=== PATIENT | female | born 1975 | race Caucasian/White ===

== ENCOUNTER → 2025-02-22 | Outpatient (CLI) | payer BC, SELFPAY ==
--- NOTE | 2025-02-22 16:29 | EKG_ITS ---
[facility] (Formerly [facility]) Test Date: 2025-02-22 Pat Name: RAFAEL ABDI Department: Room: - Gender: Female Public [employer] Internship: ALEX : 1975 Requested By: Kolby Garber Order Number: [id number] Reading MD: Kolby Garber Measurements Intervals [place] Rate: 59 P: 9 [place]: 152 QRS: 57 QRSD: 85 T: 51 QT: 389 QTc: 386 Interpretive Statements SINUS BRADYCARDIA Compared to ECG 07/23/2024 23:24:11 Sinus rhythm no longer present /store/S0/[id number]/ecg/[id number].pdf
[2025-02-22 16:46] LABS: Basophils % (Auto) 1 % (0-2.5); Eosinophils # (Auto) 0.1 Thou/mm3 (0.0-0.5); Eosinophils % (Auto) 1 % (0-10); Immature Granulocytes % (Auto) 1 % (0-0); Immature Granulocytes Auto 0.03 Thou/mm3 (0.00-0.00); Lymphocytes % (Auto) 22 % (10-50); Mean Corpuscular HGB Conc 35.1 g/dl (31.0-37.0); Mean Corpuscular Hemoglobin 32.6 pg (25.0-35.0); Mean Corpuscular Volume 93 fL (80-100); Monocytes # (Auto) 0.6 Thou/mm3 (0.0-0.8); Monocytes % (Auto) 13 % (0-12); Neutrophils # (Auto) 2.9 Thou/mm3 (1.8-7.7); Neutrophils % (Auto) 63 % (37-80); Nucleated Red Blood Cell % 0 /100 WBC (0); Platelet Count 202 Thou/mm3 (140-440); RDW Standard Deviation 44.5 fL (36.4-46.3); Red Blood Count 3.99 Miln/mm3 (4.00-5.20); White Blood Count 4.6 Thou/mm3 (3.6-11.0)
[2025-02-22 16:57] LABS: Anion Gap 4 (7-16); BUN/Creatinine Ratio 12 Ratio (12-20); Blood Urea Nitrogen 11 mg/dL (9-23); Carbon Dioxide 25.7 mMol/L (20.0-31.0); Chloride 111 mMol/L (98-107); Creatinine (Component) 0.9 mg/dL (0.6-1.3); Potassium 4.2 mMol/L (3.4-5.1); Sodium 141 mMol/L (136-145)
[2025-02-22 16:58] LABS: Alanine Aminotransferase 25 U/L (10-49); Albumin, Serum 4.2 gm/dL (3.5-5.0); Albumin/Globulin Ratio 1.4 (1.2-2.2); Alkaline Phosphatase 89 U/L (46-116); Aspartate Amino Transferase 36 U/L (0-34); Bilirubin,Total 0.3 mg/dL (0.3-1.2); Glucose 105 mg/dL (74-106); Osmolality,Calculated 280 (275-295); Total Protein 7.2 gm/dL (5.7-8.2); eGFR > 60 See Note
== END | disposition home or self-care (01) ==
LOC: COPL 15:57
PROVIDERS: PCP Family Medicine; Referring Provider Family Medicine; Visit Provider Family Medicine
DX: R53.83 Other fatigue (principal); R07.9 Chest pain, unspecified
CPT/HCPCS: 36415; 80053; 85025; 93005

== ENCOUNTER → 2025-06-13 | Outpatient (CLI) | payer BC, SELFPAY ==
[2025-06-13 13:32] LABS: Sed Rate (ESR) 4 mm/hr (0-30)
[2025-06-13 13:34] LABS: Basophils # (Auto) 0.0 Thou/mm3 (0.0-0.2); Basophils % (Auto) 0 % (0-2.5); Eosinophils # (Auto) 0.1 Thou/mm3 (0.0-0.5); Eosinophils % (Auto) 2 % (0-10); Hematocrit 38.9 % (36.0-46.0); Hemoglobin 13.4 g/dL (12.0-16.0); Immature Granulocytes Auto 0.08 Thou/mm3 (0.00-0.00); Lymphocytes # (Auto) 0.9 Thou/mm3 (1.0-4.8); Lymphocytes % (Auto) 14 % (10-50); Mean Corpuscular HGB Conc 34.4 g/dl (31.0-37.0); Mean Corpuscular Hemoglobin 32.4 pg (25.0-35.0); Mean Corpuscular Volume 94 fL (80-100); Monocytes # (Auto) 0.6 Thou/mm3 (0.0-0.8); Monocytes % (Auto) 10 % (0-12); Neutrophils # (Auto) 4.8 Thou/mm3 (1.8-7.7); Neutrophils % (Auto) 73 % (37-80); Nucleated Red Blood Cell # 0.00 Thou/mm3 (0.00-0.00); Nucleated Red Blood Cell % 0 /100 WBC (0); Platelet Count 259 Thou/mm3 (140-440); RDW Standard Deviation 45.4 fL (36.4-46.3); Red Blood Count 4.14 Miln/mm3 (4.00-5.20); White Blood Count 6.5 Thou/mm3 (3.6-11.0)
[2025-06-13 13:56] LABS: B-Type Natriuretic Peptide 35 pg/mL (0-100)
== END | disposition home or self-care (01) ==
LOC: COPL 12:38
PROVIDERS: PCP Family Medicine; Referring Provider Family Medicine; Visit Provider Family Medicine
DX: R06.02 Shortness of breath (principal)
CPT/HCPCS: 36415; 83880; 85025; 85652

== ENCOUNTER 2025-06-17 20:52 | Inpatient (IN) | payer BC, SELFPAY ==
[2025-06-17 21:08] VITALS: BP 131/84; RESP 19; TEMP 36.9; O2SAT 95; BMI 26.9
[2025-06-17 21:11] VITALS: O2SAT 96
--- NOTE | 2025-06-17 21:14 | PD.EDSOB ---
ED SOB =RME/HPI General Chief Complaint: Shortness of Breath/Dyspnea Stated Complaint: SOB Time Seen by Provider: 06/17/25 21:01 Arrival date/time: 06/17/25 20:52 RME / HPI RME / HPI Narrative: DR. MAGALLANES MAIN ED EVALUATION: 49 y/o female with recent Hx of PNA and Pulmonary Fibrosis presents BIBA from home c/o shortness of breath and O2 saturation of 84% X [employer], but 1 year overall. Patient was seen by PCP on Friday following 93% O2 saturation and shortness of breath. She was diagnosed with PNA via CXR and has been on ABX regimen for 5 days now. No other concerns or complaints expressed at this time. Related Data Home Medications ?Medication ?Instructions ?Recorded ?Confirmed duloxetine 30 mg capsule,delayed 30 mg PO QDAY #0 caps 09/06/17 02/17/20 release (Cymbalta) Allergies Allergy/AdvReac Type Severity Reaction Status Date / Time No Known Allergies Allergy Verified 06/17/25 21:11 Review of Systems Review of Systems Systems Reviewed: All systems reviewed, normal except as documented Past Medical History Past Medical History RESPIRATORY: Positive Pneumonia and Pulmonary Fibrosis GASTROINTESTINAL: Positive Irritable Bowel MUSCULOSKELETAL: Positive Fibromyalgia ENDOCRINE: Positive Systemic Lupus Erythematosus PSYCHO/SOCIAL: Positive Bipolar Disorder, Depression and Anxiety OTHER HISTORY: Positive Autoimmune Disease ED Exam Narrative Physical exam: Generally patient is alert and dyspneic, heart regular rate and rhythm, lungs show distant breath sounds bilaterally without obvious wheezes, skin is cool and pale, neurologic exam no focal motor or sensory deficits, extremities show no edema Course Quality Measures none Orders Category Date Time Status EKG (ED ONLY) *Do not use* NOW Care 06/17/25 21:17 Completed EKG (ED Only) Stat Exams 06/17/25 21:17 Draft XR chest 1V portable Stat Exams 06/17/25 21:17 Completed Blood Culture (Lab) Stat Lab 06/17/25 22:18 Ordered CBC Stat Lab 06/17/25 21:44 Completed CMP [Comprehensive Metabolic Panel] Stat Lab 06/17/25 21:44 Completed Lactic Acid [Lactate (Lactic Acid)] Stat Lab 06/17/25 22:18 Ordered Cefepime Inj [Maxipime Inj] 1 gm Med 06/17/25 22:18 Ordered SODIUM CHLORIDE 0.9% (Popper) [Ns 0.9% (P)] 50 ml IV X1 Vancomycin Pharmacy to Dose Med 06/18/25 09:00 Ordered 1 each IV QDAY Vital Signs Vital signs: Vital Signs Temperature 98.4 F 06/17/25 21:08 Respiratory Rate 19 06/17/25 21:08 Blood Pressure 131/84 H 06/17/25 21:08 Pulse Oximetry (%) 95 06/17/25 21:08 Oxygen Delivery Method Nasal Cannula 06/17/25 21:08 Oxygen Flow Rate 4 06/17/25 21:08 Shortness of Breath / Dyspnea MDM Narrative MDM Narrative:: Scribe Attestation: I, Aga Kam, am scribing for and in the presence of Dr. Magallanes. Provider Notation: Although this document has been carefully reviewed, there may still be some phonetic and other typographical errors.? These errors are purely grammatical due to imperfections in the software program and should not be construed in any way to? compromise the substance of the patient's medical care during this visit. Patient's only SIRS criteria was a respiratory rate in the mid to high 20s. Patient was requiring 4 L of nasal cannula oxygen to saturate 95%. You take her off oxygen and her saturations dipped into the mid to high 80s. Her only SIRS criteria was respiratory rate. Lactic acid level is pending. Chemistry studies are pending. White count is 10,000 which is higher than the patient has normal white blood cell count. Because of the patient's past medical history of lupus Sjogren syndrome fibromyalgia and pulmonary fibrosis, wide spectrum antibiotics were used for coverage consisting of pharmacy dose vancomycin and 1 g of cefepime IV. Chest x-ray does show evidence for pulmonary fibrosis and bilateral pneumonia without pleural effusion or pneumothorax. I did discuss this case with the hospitalist and the patient will be admitted to the hospital for further treatment and evaluation for her pneumonia with hypoxemia. Patient data External records reviewed:: [facility] previous records (Reviewed prior ED records from 07/24/24. Patient was seen for GERD with esophagitis) and EMS form Clinical information provided by:: patient and EMS Social determinants that could affect healthcare access:: mental health (Depression, Anxiety, Bipolar Disorder) Patient has the following chronic illnesses:: Pulmonary Fibrosis, Irritable Bowel, Bipolar Disorder, Depression, Anxiety, Autoimmune Disease How is presenting disease/condition affected by chronic disease/condition?: exacerbated by Evaluation data The following diagnostics were reviewed and interpreted by me:: lab results, radiology exam(s) and EKG tracing(s) Lab and/or radiology exams considered but not ordered:: None Interpretation Summary: RADIOLOGY Chest X-Ray: FINDINGS: Extensive interstitial disease throughout the lungs Normal heart size The osseous structures are intact IMPRESSION: Extensive interstitial disease throughout the lungs, consider pulmonary fibrosis with superimposed bilateral pneumonia Medications / Prescriptions Medications or Prescriptions considered but not ordered:: None Medication administrations:: Medication Administration History Cefepime HCl 1 gm/ Sodium (Chloride) 50 mls @ 100 mls/hr IV X1 ONE Stop: 06/17/25 22:47 Pharmacy Consult (Vancomycin Pharmacy To Dose 1 Each Each) 1 each IV QDAY JAYDE Stop: 07/18/25 08:59 See above Consultations Consultation(s) initiated? (list below): Yes Consultation #1 (Physician, Specialty, Details): Hospitalist made aware of the patient?s HPI, PMHx, lab and/or radiology results. Treatment plan was discussed. Will admit for further evaluation and management. Accepts patient for admission. Time: 22:20 Diagnosis Shortness of Breath Differential Diagnosis: congestive heart failure, community acquired pneumonia and pulmonary embolism Most likely diagnosis given after review of the tests above:: None Admission Indicated Admission indicated?: indicated Admission Request Was there a request for admission?: Yes Admission Attestation Admission request attestation: Discussed case with [] from Hospitalist service regarding admission. Discussed patients ED course, exam findings, labs, and radiology results. The Hospitalist [agrees,declines] to accept the patient for admission. Disposition Plan Disposition Plan: Admit Discharge Plan Plan Patient Disposition: Admit Acute Care w/in Hospital Prescriptions/Referrals Prescriptions/Med Rec: No Action duloxetine [Cymbalta] 30 MG capsule,delayed release(DR/EC) 30 mg PO QDAY Qty: 0 Referrals: Kolby Garber MD [Primary Care Provider] - In 1 week Problem List Clinical Impression: Pneumonia, Hypoxemia, Lupus (systemic lupus erythematosus), Pulmonary fibrosis, Sjogren syndrome Patient/Caregiver Discharge Instructions Print Language: Upper Sorbian Stand Alone Forms: Lucia Award Info., Patient Portal Info Letter
--- NOTE | 2025-06-17 21:17 | XR_ITS ---
Examination: AP chest single view TECHNIQUE: AP portable upright chest single view Date and time: June 17, 2025, 2120 hours, comparison 07/23/2024 INDICATIONS: Chest pain and shortness of breath today FINDINGS: Extensive interstitial disease throughout the lungs Normal heart size The osseous structures are intact IMPRESSION: Extensive interstitial disease throughout the lungs, consider pulmonary fibrosis with superimposed bilateral pneumonia
--- NOTE | 2025-06-17 21:17 | EKG_ITS ---
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
[2025-06-17 21:57] LABS: Basophils # (Auto) 0.0 Thou/mm3 (0.0-0.2); Basophils % (Auto) 0 % (0-2.5); Eosinophils # (Auto) 0.0 Thou/mm3 (0.0-0.5); Eosinophils % (Auto) 0 % (0-10); Hematocrit 38.0 % (36.0-46.0); Hemoglobin 12.9 g/dL (12.0-16.0); Immature Granulocytes Auto 0.10 Thou/mm3 (0.00-0.00); Lymphocytes # (Auto) 1.1 Thou/mm3 (1.0-4.8); Lymphocytes % (Auto) 10 % (10-50); Mean Corpuscular HGB Conc 33.9 g/dl (31.0-37.0); Mean Corpuscular Hemoglobin 31.9 pg (25.0-35.0); Mean Corpuscular Volume 94 fL (80-100); Monocytes # (Auto) 0.8 Thou/mm3 (0.0-0.8); Monocytes % (Auto) 7 % (0-12); Neutrophils # (Auto) 8.8 Thou/mm3 (1.8-7.7); Neutrophils % (Auto) 82 % (37-80); Nucleated Red Blood Cell # 0.00 Thou/mm3 (0.00-0.00); Nucleated Red Blood Cell % 0 /100 WBC (0); Platelet Count 270 Thou/mm3 (140-440); RDW Standard Deviation 43.7 fL (36.4-46.3); Red Blood Count 4.05 Miln/mm3 (4.00-5.20); White Blood Count 10.8 Thou/mm3 (3.6-11.0)
[2025-06-17 22:23] LABS: Alanine Aminotransferase 16 U/L (10-49); Albumin, Serum 4.3 gm/dL (3.5-5.0); Albumin/Globulin Ratio 2.0 (1.2-2.2); Alkaline Phosphatase 108 U/L (46-116); Anion Gap 11 (7-16); Aspartate Amino Transferase 33 U/L (0-34); BUN/Creatinine Ratio 9 Ratio (12-20); Bilirubin,Total 0.4 mg/dL (0.3-1.2); Blood Urea Nitrogen 8 mg/dL (9-23); Calcium 9.5 mg/dL (8.3-10.6); Calcium (Corrected) 9.5 mg/dL (8.5-10.1); Carbon Dioxide 22.5 mMol/L (20.0-31.0); Chloride 107 mMol/L (98-107); Creatinine (Component) 0.9 mg/dL (0.6-1.3); Estimated Creatinine Clearance 72.4 mL/min (>60); Globulin 2.2 gm/dL (2.3-3.5); Glucose 111 mg/dL (74-106); Osmolality,Calculated 278 (275-295); Potassium 4.0 mMol/L (3.4-5.1); Sodium 140 mMol/L (136-145); Total Protein 6.5 gm/dL (5.7-8.2); eGFR > 60 See Note
[2025-06-17] MEDS: CEFEPIME INJ 1 GM in SODIUM CHLORIDE 0.9% (Popper) 50 ML IV (22:34)
[2025-06-17 22:37] LABS: Lactate (Lactic Acid) 1.1 mMol/L (0.4-2.0)
[2025-06-17 23:00] VITALS: BP 144/77; PULSE 79; RESP 22; TEMP 36.9; O2SAT 97
--- NOTE | 2025-06-17 23:15 | ESHP_ITS ---
<Statement entered by Octavio Preciado MD - 06/18/25 07:48> I have discussed and was present for the essential components of the history, physical examination, diagnosis, and treatment plan with the resident. I agree with the patient's care as documented by the resident and amended herein by me. Octavio Preciado MD FACP. Documentation for date of: 06/17/25 HPI History of Present Illness Chief complaint: Shortness of breath, and desaturations on home pulse ox History of present illness: Ms Garza is a 49 yo woman with a hx of HTN, pulmonary fibrosis(not on home oxygen), lupus, Sjogren, fibromyalgia, Bipolar type 2, anxiety and depression, who was BIBA due to shortness of breath and desaturations that she noted on her home o2 sensor despite taking 2 puffs of her fluticasone inhaler. She reports that she was seen by her primary care doctor on friday and was diagnosed with pneumonia. She was given a course of levofloxacin for 7 days that she reports taking as prescribed (on day 5 of 7). Initially she reports that her symptoms improved while on the abx, however they worsened within the past day. She endorses having two days of fever this week to 101 and 102 that resolved with tylenol and ibuprofen. She denies any recent sick contacts, no recent travel. No history of cocci. ROS Pt endorses fever, chills, productive cough, vomiting, nausea, shortness of breath pt denies chest pain, palpatations, no dysuria, no leg pain, no abdominal pain FMH - maternal grandmother with pulmonary fibrosis Surgical Hx -D and C Social Hx -never tobacco smoker -no ETOH, no recreational drugs -has a daughter Medications: -quentiapine -vortioxetine -amoxitine -lamotrogine -propranalol -levofloxacin 500 7 days (prescribed on 06/13) ED Course pt BIBA for desaturations to 85. Satting well on 4L NC. mildly tachycardic to 100s, Afebrile. Dx -labs notable for wbc 10 (pt baseline ~4), lactic acid wnl 1.1, Bcx pending -CXR with Extensive interstitial disease throughout the lungs, consider pulmonary fibrosis, with superimposed bilateral pneumonia -EKG prolonged QT, supraventricular rhythm Tx -ABx Vanc and cefepime Review of Systems Review of Systems Narrative Review of Systems: as per hpi Past Medical History Family History OTHER FAMILY HX: as per hpi Exam Vital Signs Temp Resp BP Pulse Ox O2 Del Method O2 Flow Rate 98.4 F 19 131/84 H 95 Nasal Cannula 4 06/17/25 21:08 06/17/25 21:08 06/17/25 21:08 06/17/25 21:08 06/17/25 21:08 06/17/25 21:08 Narrative Exam GENERAL: no acute distress, AAO x3, sitting in bed, is at bedside HEENT: Head AT/ NC. Mucous membranes dry. EOM intact CARDIOVASCULAR: RRR. (pt tachycardic to 100s on monitor when asked to sit upright for exam) Normal S1/S2, No m/r/g. No pitting edema of bilateral LEs. RESPIRATORY: coarse crackles in L mid to low lung solares, R lug with basilar crackles. GASTROINTESTINAL: Abdomen soft, non tender no palpable masses. Bowel sounds present, no rebound, no guarding. (pt c/o fascial pain in RUQ on palpation iso hx of fibromyalgia, tenderness is at pt baseline) MUSCULOSKELETAL:? No cyanosis or edema, no visible joint swelling. NEUROLOGICAL: CN II-XII grossly intact. No focal deficits. Sensation intact, symmetric. PSYCHIATRIC: Awake and alert, not agitated, normal mood and affect. SKIN: No obvious rashes, no jaundice, normal turgor. Results: Labs 06/17/25 21:44 06/17/25 21:44 Labs: Short CBC 06/17/25 Range/Units 21:44 WBC 10.8 D (3.6-11.0) Thou/mm3 Hgb 12.9 (12.0-16.0) g/dL Hct 38.0 (36.0-46.0) % Plt Count 270 (140-440) Thou/mm3 BMP 06/17/25 21:44 Sodium 140 Potassium 4.0 Chloride 107 Carbon Dioxide 22.5 BUN 8 L Creatinine 0.9 Glucose 111 H Calcium 9.5 Liver Function 06/17/25 Range/Units 21:44 Total Bilirubin 0.4 (0.3-1.2) mg/dL AST 33 (0-34) U/L ALT 16 (10-49) U/L Alkaline Phosphatase 108 (46-116) U/L Albumin 4.3 (3.5-5.0) gm/dL Quality Measures Quality Measures none Medications Home Medications and Allergies Home Medications ?Medication ?Instructions ?Recorded ?Confirmed ?Type duloxetine 30 mg capsule,delayed 30 mg PO QDAY #0 caps 09/06/17 02/17/20 History release (Cymbalta) Allergies Allergy/AdvReac Type Severity Reaction Status Date / Time No Known Allergies Allergy Verified 06/17/25 21:11 Visit Medications Acetaminophen (Acetaminophen 325 Mg Tablet) 650 mg PO Q6H PRN PRN Reason: Fever >100.3, mild pain 1-3. Stop: 07/17/25 22:59 Heparin Sodium (Porcine) (Heparin Sod Inj 5000 Unit/Ml Vial) 5,000 unit SC Q12HR JAYDE Stop: 07/02/25 08:59 Vancomycin/Sodium Chloride (Vancomycin/Ns 1 Gm Ivpb) 200 mls @ 120 mls/hr IV X1 ONE Stop: 06/18/25 00:24 Ceftriaxone Sodium/Dextrose (Rocephin/D5w 1gm Iv Premix) 1 gm in 50 mls @ 100 mls/hr IV QDAY JAYDE Stop: 06/25/25 08:59 Doxycycline Hyclate 100 mg/ (Sodium Chloride) 100 mls @ 100 mls/hr IV BID JAYDE Stop: 06/25/25 08:59 Pharmacy Consult (Vancomycin Pharmacy To Dose 1 Each Each) 1 each IV QDAY JAYDE Stop: 07/18/25 08:59 Discontinued Medications Cefepime HCl 1 gm/ Sodium (Chloride) 50 mls @ 100 mls/hr IV X1 ONE Stop: 06/17/25 22:47 Last Admin: 06/17/25 22:34 Dose: 100 mls/hr Sodium Chloride (Sodium Chloride Rt 10% 15 Ml Nebu) 5 ml INH X1 ONE Stop: 06/17/25 23:01 Assessment & Plan Plan Ms Garza is a 49 yo woman with a hx of HTN, pulmonary fibrosis(not on home oxygen), lupus, Sjogren, fibromyalgia, Bipolar type 2, anxiety and depression, who was diagnosed with PNA outpatient, and failed outpt managment with levofloxacin, admitted for acute hypoxic respiratory failure 2/2 CAP. #Acute hypoxic respiratory failure likely 2/2 #Bilateral CAP Wells Criteria: 1.5 low risk( no CTA indicated at this time) low suspicion for PE. patient was diagnosed on 06/13 by primary care doctor given a 7 day course of levofloxacin. On admission she is on day 5 of 7 with desaturations to 80s, requiring 4L NC. On exam, R mid and lower lung solares with coarse crackles, L basilar crackles, with intermittent coughing, no LE edema, Heart sounds RRR leukocytosis of 10, given pt baseline of 6. strong level of suspicion for viral etiology given procal negative, and symptoms persisted on abx. Dx -consider CTA if no resolution of symptoms and pt remains tachycardic. -CXR with Extensive interstitial disease throughout the lungs, consider pulmonary fibrosis, with superimposed bilateral pneumonia -MRSA nares pending -cocci pending -procalcitonin wnl -Influenza A and B rapid pending -COVID pending -ABG -sputum cultures pending Tx -d/c Vanc x1 06/17 -d/c Cefepime x1 06/17 -start CTX 1 gm qd (06/18- -start doxy qd (06/18- -tessalon for cough #prolonged QT pt is asymptomatic -consider f/u EKG -avoid qt prolonging agents #Interstitial Pulmonary Disease #Pulmonary Fibrosis pt states that she was recently diagnosed with pulmonary fibrosis, and has family history of pulmonary fibrosis -cont fluticasone inhaler PRN -consider ct chest given cxr findings with pulm fibrosis #Chronic Problems #Fibromyalgia #Lupus #Sjogren - cont home gabapentin 300 qd #HTN BP 120s-140s on admission #Bipolar Type 2 -cont home lamotrogine 100 mg qd #Anxiety #MDD -consider restarting home Trillentix -consider restarting home amoxitine -consider restarting home hydroxizine -consider restart home propranalol -cont home quentiapine 25 qHS Dispo: admitted to [facility], plan for dispo to home once O2 requirement decreases Diet: Regular diet Bowel Reg: not indicated VTE ppx: heparin 5000 SC q12 GI ppx: not indicated Code status: Full Patient case discussed with my senior resident Heather Rasheed PGY2 and my attending Dr. Ozzy Enriquez MD PGY1
[2025-06-17 23:26] VITALS: PULSE 85; RESP 22; O2SAT 95
[2025-06-17] MEDS: SODIUM CHLORIDE RT 10% 15 ML NEBU 5 ML INH (23:26)
[2025-06-17 23:37] VITALS: PULSE 88; RESP 18; O2SAT 98
[2025-06-17 23:40] LABS: Base Excess -2 (-3-3); HCO3 21 mEq/L (20-26); Inspired O2, VO2 Liters 3 L/min; Inspired Oxygen, FIO2 21 %; O2 Saturation 100 % (91-98); PCO2 32 mmHg (32.0-48.0); PO2 155 mmHg (83-108); pH, Arterial 7.44 (7.35-7.45)
[2025-06-17] MEDS: VANCOMYCIN/NS 1 GM IVPB 200 ML IV (23:41)
[2025-06-17 23:42] LABS: Allen Test Not Performed; Puncture Site Right Radial
[2025-06-18] VITALS (9 sets, daily range): BP systolic 114–150; BP diastolic 70–85; PULSE 62–72; RESP 15–28; TEMP 36.1–36.4; O2SAT 94–99
[2025-06-18 00:07] LABS: Procalcitonin 0.07 ng/ml (0.0-0.49)
--- NOTE | 2025-06-18 00:10 | PC.NURSE ---
CALLED [facility] FOR [facility]QU[facility]
[2025-06-18] MEDS: BENZONATATE 100 MG CAPSULE PO (02:18)
[2025-06-18 05:50] LABS: Basophils # (Auto) 0.0 Thou/mm3 (0.0-0.2); Basophils % (Auto) 0 % (0-2.5); Eosinophils # (Auto) 0.0 Thou/mm3 (0.0-0.5); Eosinophils % (Auto) 0 % (0-10); Hematocrit 36.4 % (36.0-46.0); Hemoglobin 12.1 g/dL (12.0-16.0); Immature Granulocytes Auto 0.04 Thou/mm3 (0.00-0.00); Lymphocytes # (Auto) 1.2 Thou/mm3 (1.0-4.8); Lymphocytes % (Auto) 21 % (10-50); Mean Corpuscular HGB Conc 33.2 g/dl (31.0-37.0); Mean Corpuscular Hemoglobin 31.4 pg (25.0-35.0); Mean Corpuscular Volume 95 fL (80-100); Monocytes # (Auto) 0.7 Thou/mm3 (0.0-0.8); Monocytes % (Auto) 12 % (0-12); Neutrophils # (Auto) 3.9 Thou/mm3 (1.8-7.7); Neutrophils % (Auto) 66 % (37-80); Nucleated Red Blood Cell # 0.00 Thou/mm3 (0.00-0.00); Nucleated Red Blood Cell % 0 /100 WBC (0); Platelet Count 234 Thou/mm3 (140-440); RDW Standard Deviation 44.0 fL (36.4-46.3); Red Blood Count 3.85 Miln/mm3 (4.00-5.20); White Blood Count 5.9 Thou/mm3 (3.6-11.0)
[2025-06-18 06:31] LABS: Alanine Aminotransferase 14 U/L (10-49); Albumin, Serum 4.0 gm/dL (3.5-5.0); Albumin/Globulin Ratio 1.8 (1.2-2.2); Alkaline Phosphatase 100 U/L (46-116); Anion Gap 12 (7-16); Aspartate Amino Transferase 25 U/L (0-34); BUN/Creatinine Ratio 9 Ratio (12-20); Bilirubin,Total 0.5 mg/dL (0.3-1.2); Blood Urea Nitrogen 7 mg/dL (9-23); Calcium 9.3 mg/dL (8.3-10.6); Calcium (Corrected) 9.3 mg/dL (8.5-10.1); Carbon Dioxide 21.1 mMol/L (20.0-31.0); Chloride 108 mMol/L (98-107); Creatinine (Component) 0.8 mg/dL (0.6-1.3); Estimated Creatinine Clearance 81.2 mL/min (>60); Globulin 2.2 gm/dL (2.3-3.5); Glucose 110 mg/dL (74-106); Magnesium 1.4 mg/dL (1.6-2.6); Osmolality,Calculated 280 (275-295); Phosphorous 3.0 mg/dL (2.4-5.1); Potassium 3.8 mMol/L (3.4-5.1); Sodium 141 mMol/L (136-145); Total Protein 6.2 gm/dL (5.7-8.2); eGFR > 60 See Note
[2025-06-18] MEDS: HEPARIN SOD INJ 5000 UNIT/ML VIAL SC ×2 (09:35→20:22)
[2025-06-18] MEDS: PROPRANOLOL 10 MG TABLET PO (09:35)
[2025-06-18] MEDS: cefTRIAXone/D5w 1gm IV premix 1 GM/50 ML BAG IV (09:36)
[2025-06-18] MEDS: VANCOMYCIN/WATER 1GM IVPB 200 ML IV (09:59)
[2025-06-18] MEDS: VORTIOXETINE 5 MG TABLET (NON FORMULARY) 20 MG PO (09:59)
[2025-06-18] MEDS: Magnesium Sulfate 4 GM Ivpb 4 GM/50 ML BAG IV (09:59)
--- NOTE | 2025-06-18 10:16 | EKG_ITS ---
[facility] Test Date: 2025-06-18 Pat Name: RAFAEL ABDI [facility] Female [employer] Founder: RACHEL : 1975 Requested By: Hilda Wells Order Number: [id number] Reading MD: Hilda Wells Measurements Intervals [place] Rate: 62 P: 5 NM: 145 QRS: 42 QRSD: 92 T: 36 QT: 418 QTc: 426 Interpretive Statements SINUS RHYTHM MINIMAL ST DEPRESSION Compared to ECG 06/17/2025 21:51:09 ST (T wave) deviation now present Supraventricular rhythm no longer present Prolonged QT interval no longer present /store/S0/[id number]/ecg/[id number].pdf
--- NOTE | 2025-06-18 10:48 | PC.SS ---
Aneta Garza is a 49-year-old female admitted to Med Surg for PNA NIDY. SS conducted bedside contact with the patient to complete initial assessment and to discuss discharge planning. Role and reason explained. Patient confirmed demographic information. Patient identifies dtr Kellynavid Hickey [phone] as her surrogate decision maker. Pt lives with her ; pt states she is able to complete all ADL?s independently. Pt possesses a cane. Pts PCP is Dr. Garber (Last visit was Jun 06). Pharmacy of choice is [facility]. Discharge options discussed and the pt wishes to return home.? Family will provide transportation upon DC. No further intervention required at this time, social worker assistant would be available to address any further concerns. DC Plan: Home Contact: Jennifer Address: Confirmed on face sheet PCP: Jcarlos
[2025-06-18] MEDS: DOXYCYCLINE INJ 100 MG in SODIUM CHLORIDE 0.9% (POP) 100 ML IV ×2 (10:49→20:17)
[2025-06-18] MEDS: CEFEPIME INJ 2 GM in SODIUM CHLORIDE 0.9% (Popper) 50 ML IV ×2 (10:50→21:27)
--- NOTE | 2025-06-18 12:52 | ESPR_ITS ---
<Statement entered by Hilda Wells MD - 06/18/25 17:32> Patient was seen and examined at bedside. I agree on the assessment and plan on this note as documented by resident Anne Marie Bear MD PGY1. 49-year-old female with past medical history as below, admitted for acute hypoxic respiratory failure secondary to community-acquired pneumonia failed outpatient treatment on levofloxacin, patient does have interstitial pulmonary disease, was diagnosed with pulmonary fibrosis per patient in the past on imaging findings, denies following up with pulmonology outpatient. 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 Will continue cefepime and doxycycline, resumed all home medications for psych disorders. Patient reported that she has been taking hydroxychloroquine 200 mg twice daily for SLE however has not taken in the last 1 week, will resume for the hospitalization. Patient already established with rheumatology and psychiatry outpatient, recommend following postdischarge. Currently patient is stable on room air, receiving IV antibiotics. Follow urine culture, blood culture coccidiomycosis serology. QTc reassessed, no evidence of QT prolongation, previous reading likely EKG artifact Case discussed with attending Dr. Yesenia Wells MD PGY-2 Documentation for date of: 06/18/25 Subjective Subjective Interval history: 49 year-old female with past medical history significant for hypertension, pulmonary fibrosis, lupus, Sjogren, fibromyalgia, bipolar disorder type II, anxiety, depression was jerson in to [facility] ED for shortness of breath and oxygen saturation in the 80s. Patient admitted for acute hypoxic respiratory failure likely secondary to pneumonia. The patient was seen and examined by bedside. She endorses dry cough with minimal sputum, shortness of breath with ambulation. Denies chest pain, lightheadedness, weakness and bodyaces. Saturating 98 L on 2L nasal canula. Discuss with the patient about her home regimen for rheumatological disease. Patient is advised to obtain outpatient pulmonary consultation for evaluation and management of interstitial lung disease. Resume some of her home medications. Exam Vital Signs Temp Pulse Resp BP Pulse Ox O2 Del Method O2 Flow Rate 97.0 F 62 20 150/85 H 98 Nasal Cannula 1 06/18/25 08:00 06/18/25 09:35 06/18/25 08:11 06/18/25 09:35 06/18/25 08:11 06/18/25 08:00 06/18/25 08:11 Narrative Exam Physical Exam General: Awake and in no acute distress. Conversational and non-toxic appearing. HEENT: Normocephalic, atraumatic, mucous membranes moist. Heart: Regular rate and rhythm, normal S1 and S2, no murmurs. Lungs: R mid and lower lung solares with coarse crackles, L basilar crackles.C lear to auscultation with no wheezing or crackles. Abdomen: Soft, nondistended, nontender, positive bowel sounds. ?No guarding or rebound tenderness. Neurologic: Alert and oriented x3, no gross neurological deficit, and patient able to move all 4 extremities. Extremities: No edema. Skin: No rash or ecchymoses. Objective Labs 06/18/25 05:20 06/18/25 05:20 Labs: Laboratory Results - last 24 hr 06/17/25 06/17/25 06/17/25 21:44 22:26 23:29 WBC 10.8 D RBC 4.05 Hgb 12.9 Hct 38.0 MCV 94 MCH 31.9 MCHC 33.9 RDW Std Deviation 43.7 Plt Count 270 Neut % (Auto) 82 H Lymph % (Auto) 10 [place] % (Auto) 7 Eos % (Auto) 0 Baso % (Auto) 0 Neut # (Auto) 8.8 H Lymph # (Auto) 1.1 [place] # (Auto) 0.8 Eos # (Auto) 0.0 Baso # (Auto) 0.0 Immature Gran # (Auto) 0.10 H Absolute Nucleated RBC 0.00 Immature Gran % 1 H Nucleated RBC % 0 Puncture Site Right Radial ABG pH 7.44 ABG pCO2 32 ABG pO2 155 H ABG HCO3 21 ABG O2 Saturation 100 H ABG Base Excess -2 Oxygen Liter Flow 3 FiO2 21 Sodium 140 Potassium 4.0 Chloride 107 Carbon Dioxide 22.5 Anion Gap 11 BUN 8 L Creatinine 0.9 Estim Creat Clear Calc 72.4 eGFR > 60 BUN/Creatinine Ratio 9 L Glucose 111 H Calculated Osmolality 278 Lactic Acid 1.1 Calcium 9.5 Corrected Calcium 9.5 Phosphorus Magnesium Total Bilirubin 0.4 AST 33 ALT 16 Alkaline Phosphatase 108 Total Protein 6.5 Albumin 4.3 Globulin 2.2 L Albumin/Globulin Ratio 2.0 Procalcitonin 0.07 08/16/25 05:20 WBC 5.9 D RBC 3.85 L Hgb 12.1 Hct 36.4 MCV 95 MCH 31.4 MCHC 33.2 RDW Std Deviation 44.0 Plt Count 234 D Neut % (Auto) 66 Lymph % (Auto) 21 [place] % (Auto) 12 Eos % (Auto) 0 Baso % (Auto) 0 Neut # (Auto) 3.9 Lymph # (Auto) 1.2 [place] # (Auto) 0.7 Eos # (Auto) 0.0 Baso # (Auto) 0.0 Immature Gran # (Auto) 0.04 H Absolute Nucleated RBC 0.00 Immature Gran % 1 H Nucleated RBC % 0 Puncture Site ABG pH ABG pCO2 ABG pO2 ABG HCO3 ABG O2 Saturation ABG Base Excess Oxygen Liter Flow FiO2 Sodium 141 Potassium 3.8 Chloride 108 H Carbon Dioxide 21.1 Anion Gap 12 BUN 7 L Creatinine 0.8 Estim Creat Clear Calc 81.2 eGFR > 60 BUN/Creatinine Ratio 9 L Glucose 110 H Calculated Osmolality 280 Lactic Acid Calcium 9.3 Corrected Calcium 9.3 Phosphorus 3.0 Magnesium 1.4 L Total Bilirubin 0.5 AST 25 ALT 14 Alkaline Phosphatase 100 Total Protein 6.2 Albumin 4.0 Globulin 2.2 L Albumin/Globulin Ratio 1.8 Procalcitonin ABG Interpretation ABG results: 06/17/25 23:29 ABG pH 7.44 ABG pCO2 32 ABG pO2 155 H ABG HCO3 21 ABG O2 Saturation 100 H ABG Base Excess -2 Quality Measures Quality Measures none Assessment & Plan Assessment Current Active Medications: Generic Name Dose Route Start Last Admin Trade Name Oscar PRN Reason Stop Dose Admin Acetaminophen 650 mg 06/17/25 23:00 Acetaminophen 325 Mg Tablet PO 07/17/25 22:59 Q6H PRN Fever >100.3, mild pain 1-3. Benzonatate 100 mg 06/18/25 00:28 06/18/25 02:18 Benzonatate 100 Mg Capsule PO 07/18/25 00:27 100 mg Q8HR PRN Administration COUGH Protocol Fluticasone Propionate 1 puff 06/18/25 03:56 Fluticasone 110 Mcg 12 Gm Inh INH 07/18/25 03:55 BIDRT PRN WHEEZING Gabapentin 600 mg 06/18/25 21:00 Gabapentin 300 Mg Capsule PO 07/18/25 20:59 HS JAYDE Heparin Sodium (Porcine) 5,000 unit 06/18/25 09:00 06/18/25 09:35 Heparin Sod Inj 5000 Unit/Ml Vial SC 07/02/25 08:59 5,000 unit Q12HR JAYDE Administration Hydroxyzine HCl 10 mg 06/18/25 09:11 Hydroxyzine Hcl 10 Mg Tablet PO 07/18/25 20:59 HS PRN ANXIETY Doxycycline Hyclate 100 mg/ 100 mls @ 100 mls/hr 06/18/25 09:00 06/18/25 10:49 Sodium Chloride IV 06/25/25 08:59 100 mls/hr BID JAYDE Administration Magnesium Sulfate 2 gm in 50 mls @ 25 mls/hr 06/18/25 12:40 Magnesium Sulfate Ivpb IV 06/18/25 14:39 X1 ONE Cefepime HCl 2 gm/ Sodium 50 mls @ 100 mls/hr 06/18/25 10:22 06/18/25 10:50 Chloride IV 06/25/25 10:21 100 mls/hr Q8HR JAYDE Administration Lamotrigine 100 mg 06/18/25 09:15 06/18/25 09:59 Lamotrigine 100 Mg Tablet PO 07/18/25 09:14 100 mg QAM JAYDE Administration (Atomoxetine 25 Mg 25 mg 06/18/25 09:15 06/18/25 10:00 Capsule) PO 07/18/25 09:14 Not Given DAILY JAYDE Propranolol HCl 10 mg 06/18/25 09:15 06/18/25 09:35 Propranolol 10 Mg Tablet PO 07/18/25 09:14 10 mg DAILY JAYDE Administration Quetiapine Fumarate 25 mg 06/18/25 21:00 Quetiapine Fumarate 25 Mg Tablet PO 07/18/25 20:59 HS JAYDE Vortioxetine 20 mg 06/18/25 09:15 06/18/25 09:59 Vortioxetine 5 Mg Tablet (Non Formulary) PO 07/18/25 09:14 20 mg DAILY JAYDE Administration Plan 49 year-old female with past medical history significant for hypertension, pulmonary fibrosis, lupus, Sjogren, fibromyalgia, bipolar disorder type II, anxiety, depression was jerson in to [facility] ED for shortness of breath and oxygen saturation in the 80s. Patient admitted for acute hypoxic respiratory failure likely secondary to pneumonia. #Acute hypoxic respiratory failure 2/2 #Community-acquired pneumonia Wells Criteria: 1.5 low risk (no CTA indicated at this time) low suspicion for PE. Patient was diagnosed on 06/13 by primary care doctor given a 7 day course of levofloxacin. On admission she is on day 5 of 7 with desaturations to 80s, requiring 4L NC. On exam, R mid and lower lung solares with coarse crackles, L basilar crackles, with intermittent coughing, no LE edema. Leukocytosis of 10 on admission, given pt baseline of 6. Low level of suspicion for viral etiology given procal negative, and symptoms persisted on abx. Also COVID negative, Influenza A and B is negative Chest x-ray (06/17/25) showed extensive interstitial disease throughout the lungs, consistent with pulmonary fibrosis with superimposed bilateral pneumonia. Discontinue vancomycin 1gm (06/17/25 - 06/18/25) Plan - Blood culture, pending - Sputum culture, pending - Started benzonatate 100mg PRN for cough - Started Cefepime 2 gm IV ( 06/18/25)- - Continue doxycycline 100mg IV BID (06/18/25) - - Continue O2 delivery as needed - Continue to monitor respiratory status - Continue to monitor CBC and CMP - Repleted Mg #Interstitial Pulmonary Disease #Pulmonary Fibrosis Patient states that she was recently diagnosed with pulmonary fibrosis, and has family history of pulmonary fibrosis - Continue fluticasone inhaler PRN - Patient counseled on ILD:Outpatient pulmonary consult recommended -Consider chest CT chest given CXR findings with pulmonary fibrosis #Fibromyalgia #Lupus #Sjogren Patient follows with sql application developer Dr. Schaefer in [place] for management of this condition. Plan - Resume home hydroxychloroquine 200mg PO BID for lupus - Resume gabapentin 600mg #Bipolar 2 Disorder #MDD #Anxiety Patient has a psychiatrist Dr. Giemnez whom the she follows via tele. Plan - Continue home lamotrigine for bipolar disorder - resume home: Atomoxetine 25 mg p.o. daily - resume home Seroquel 25 mg p.o. at bedtime - resume home Vortioxetine 20 mg p.o. daily - resume home hydroxychloroquine 200 mg p.o. twice daily #Primary Hypertension Blood pressure on admision was 120-140s. Plan - Propranolol 10 mg PO daily Hospital management: Lines: peripheral IV Diet: Regular GI prophylaxis: pantoprazole DVT prophylaxis: Heparin drip [facility] CODE STATUS: Full code Patient seen and assessed under supervision of attending physician Dr. Link and discuss with senior resident Dr. Wells PGY-2 Anne Marie Bear MD PGY-1, Internal Medicine Attending Provider Attestation/Addendum I Yesenia Link MD reviewed the note and agree with the resident's assessment & plan with modifications/additions/exceptions as below. I have personally reviewed labs, imaging, home meds/prior records, examined the patient, formulated and discussed management plan with the IM team. Specialists A 49-year-old female with history of Sjogren syndrome, lupus, seizure disorder, pulmonary fibrosis, HTN, bipolar disorder presented to ED with shortness of breath along with nausea, vomiting and cough at home with hypoxia with [id number] at home. Patient has been on antibiotics for pneumonia in outpatient setting for the past week however noted to have high-grade fever 2 days ago. Patient likely has failed outpatient CAP treatment and is admitted for acute hypoxemic respiratory failure secondary to CAP failed outpatient management. Continue supplemental oxygen, will change antibiotic coverage to cefepime and doxycycline for pseudomonal and atypical coverage in the setting of pulmonary fibrosis. Discontinue vancomycin. Resume Plaquenil home dose 200 mg twice daily, pending further infectious workup including mycoplasma and cocci serologies.
[2025-06-18] MEDS: Magnesium Sulfate 2 GM Ivpb 2 GM/50 ML BAG IV (13:15)
[2025-06-18] MEDS: HYDROXYCHLOROQUINE 200 MG TABLET PO ×2 (13:51→21:29)
[2025-06-18 15:07] LABS: Cocci Serology, IgM Negative (Negative)
[2025-06-18 18:47] LABS: Influenza A Ag Negative; Influenza B Ag Negative
[2025-06-18] MEDS: GABAPENTIN 300 MG CAPSULE 600 MG PO (20:15)
[2025-06-19] VITALS: BP 125/60; PULSE 74; RESP 16; TEMP 36.1; O2SAT 96
[2025-06-19] MEDS: CEFEPIME INJ 2 GM in SODIUM CHLORIDE 0.9% (Popper) 50 ML IV (05:58)
[2025-06-19 06:20] LABS: Basophils # (Auto) 0.0 Thou/mm3 (0.0-0.2); Basophils % (Auto) 1 % (0-2.5); Eosinophils # (Auto) 0.2 Thou/mm3 (0.0-0.5); Eosinophils % (Auto) 2 % (0-10); Hematocrit 39.2 % (36.0-46.0); Hemoglobin 12.9 g/dL (12.0-16.0); Immature Granulocytes Auto 0.05 Thou/mm3 (0.00-0.00); Lymphocytes # (Auto) 1.3 Thou/mm3 (1.0-4.8); Lymphocytes % (Auto) 21 % (10-50); Mean Corpuscular HGB Conc 32.9 g/dl (31.0-37.0); Mean Corpuscular Hemoglobin 31.7 pg (25.0-35.0); Mean Corpuscular Volume 96 fL (80-100); Monocytes # (Auto) 0.8 Thou/mm3 (0.0-0.8); Monocytes % (Auto) 14 % (0-12); Neutrophils # (Auto) 3.8 Thou/mm3 (1.8-7.7); Neutrophils % (Auto) 62 % (37-80); Nucleated Red Blood Cell # 0.00 Thou/mm3 (0.00-0.00); Nucleated Red Blood Cell % 0 /100 WBC (0); Platelet Count 230 Thou/mm3 (140-440); RDW Standard Deviation 45.7 fL (36.4-46.3); Red Blood Count 4.07 Miln/mm3 (4.00-5.20); White Blood Count 6.2 Thou/mm3 (3.6-11.0)
[2025-06-19] MEDS: ACETAMINOPHEN 325 MG TABLET 650 MG PO (06:36)
[2025-06-19] MEDS: BENZONATATE 100 MG CAPSULE PO (06:37)
[2025-06-19 07:00] LABS: Alanine Aminotransferase 20 U/L (10-49); Albumin, Serum 4.1 gm/dL (3.5-5.0); Albumin/Globulin Ratio 1.9 (1.2-2.2); Alkaline Phosphatase 96 U/L (46-116); Anion Gap 11 (7-16); Aspartate Amino Transferase 39 U/L (0-34); BUN/Creatinine Ratio 9 Ratio (12-20); Bilirubin,Total 0.3 mg/dL (0.3-1.2); Blood Urea Nitrogen 8 mg/dL (9-23); Calcium 9.1 mg/dL (8.3-10.6); Calcium (Corrected) 9.1 mg/dL (8.5-10.1); Carbon Dioxide 22.7 mMol/L (20.0-31.0); Chloride 110 mMol/L (98-107); Creatinine (Component) 0.9 mg/dL (0.6-1.3); Estimated Creatinine Clearance 72.2 mL/min (>60); Globulin 2.2 gm/dL (2.3-3.5); Glucose 101 mg/dL (74-106); Magnesium 2.3 mg/dL (1.6-2.6); Osmolality,Calculated 285 (275-295); Phosphorous 3.0 mg/dL (2.4-5.1); Potassium 4.6 mMol/L (3.4-5.1); Sodium 144 mMol/L (136-145); Total Protein 6.3 gm/dL (5.7-8.2); eGFR > 60 See Note
[2025-06-19 08:00] VITALS: BP 99/64; PULSE 77; RESP 16; TEMP 36.1; O2SAT 98
[2025-06-19 08:05] VITALS: PULSE 83; RESP 18; O2SAT 97
[2025-06-19] MEDS: DOXYCYCLINE INJ 100 MG in SODIUM CHLORIDE 0.9% (POP) 100 ML IV (09:29)
[2025-06-19 09:30] VITALS: BP 99/64; PULSE 77
[2025-06-19] MEDS: HYDROXYCHLOROQUINE 200 MG TABLET PO (09:30)
[2025-06-19] MEDS: VORTIOXETINE 5 MG TABLET (NON FORMULARY) 20 MG PO (09:30)
[2025-06-19] MEDS: HEPARIN SOD INJ 5000 UNIT/ML VIAL SC (09:30)
[2025-06-19] MEDS: PROPRANOLOL 10 MG TABLET PO (09:30)
[2025-06-19 12:00] VITALS: BP 119/75; PULSE 69; RESP 17; TEMP 36.3; O2SAT 99
--- NOTE | 2025-06-19 15:03 | ESDS_ITS ---
Planned Discharge Date 06/19/25 DS: Providers Provider Date of admission: 06/17/25 23:01 Primary care physician: Kolby Garber MD Admitting Provider: Octavio Preciado MD Attending Provider on Admission: Octavio Preciado MD Consults: 06/18/25 02:04 Referral Infection Control Routine Comment: Reason for Infection Control Referral: Multiple ABX (>2) Attending Provider on DC: Yesenia Link MD Discharging Provider: Yesenia Link MD DS: Diagnosis Problem List Completed Was Problem List Reviewed/Reconciled?: Yes Hospital Course Hospital Course Hospital course: Summary: Aneta Garza is a 49 year-old female with past medical history significant for hypertension, pulmonary fibrosis, lupus, Sjogren, fibromyalgia, bipolar disorder type II, anxiety, depression was presented to [facility] ED on 06/17 for shortness of breath, admitted for acute hypoxic respiratory failure likely secondary to pneumonia. Patient reported she felt short of breath and visited her PCP who prescribed her levofloxacin. She took it for 5 days however on the fifth day she noticed desaturation on home O2 monitor and increased shortness of breath with 2 episodes of fever. On admission patient was treated with cefepime and doxycycline. Course complicated by patient reporting that she was out of her Plaquenil for the past week and she was supplemented in patient. As antibiotics were started, patient reports that breathing improved and no further episodes of desaturation during hospital stay. On discharge, patient is hemodynamically stable, not on supplemental oxygen, vitals and labs reviewed to be stable and patient is feeling ready to go home. Imaging: Chest x-ray showed extensive interstitial lung disease throughout the lungs with superimposed bilateral pneumonia Discharge Recommendations: - Please take all medications as prescribed - Start Augmentin for 6 more days -Start azithromycin for 5 more days -Start prednisone 40 mg for 5 days -Continue all home medications as prescribed - Please follow up with your PCP within one week of discharge - If your symptoms worsen, please seek immediate medical attention and return to your nearest emergency room. - If you do not have a PCP, you may follow up at the [facility] at [address] [place] [address] [address] [address], Hospital Diagnoses: #Acute hypoxic respiratory failure 2/2 #Community-acquired pneumonia #Interstitial Pulmonary Disease #Pulmonary Fibrosis #Fibromyalgia #SLE #Sjogren #Bipolar 2 Disorder #MDD #Anxiety #Primary Hypertension Johnna Sanchez, DO Internal Medicine, PGY-1 Status at Discharge Cognitive/behavioral status at discharge: Stable Functional status at discharge: independent ambulation Overall status at discharge: patient is back to baseline Time Spent with Patient Time attestation: Total time spent providing and/or coordinating discharge services: Time spent: Greater than 30 minutes Exam Vital Signs Temp Pulse Resp BP Pulse Ox O2 Del Method O2 Flow Rate 97.3 F 69 17 119/75 99 Room Air 1 06/19/25 12:00 06/19/25 12:00 06/19/25 12:00 06/19/25 12:00 06/19/25 12:00 06/19/25 12:00 06/18/25 16:00 Narrative Exam GENERAL: AOx3, no acute distress, pleasant conversational HEENT: NC/AT, mucous membranes moist, bilateral sclera anicteric CARDIOVASCULAR: regular rate and rhythm, S1/S2 present, no murmurs appreciated PULMONARY: clear to auscultation bilaterally, no rales/rhonchi/wheezes ABDOMINAL: soft, non-tender, non-distended, no rebound/guarding, bowel sounds present EXTREMITIES: no peripheral edema SKIN: warm and dry, intact, no rashes NEURO: CN II-XII grossly intact, no focal deficits, alert, following commands Discharge Plan Plan Patient Disposition: HOME (Self Care) Patient condition on transfer: Stable Care Plan Goals: -Follow up with PCP within 1 week of discharge, if you do not have a primary care physician you can come see us at the [facility] by calling [phone] -You have been prescribed antibiotics, please complete the course (you will take Azithromycin for 5 days and augmentin for 6 days) -You have also been prescribed steroids for 5 days -Continue rest of medications as previously prescribed -Return to the ED or call EMS if symptoms return and/or worsen Prescriptions/Referrals Prescriptions/Med Rec: New amoxicillin-pot clavulanate 875-125 mg tablet 1 tab PO BID 6 Days Qty: 12 0RF azithromycin 500 mg tablet 500 mg PO QDAY 5 Days Qty: 5 0RF prednisolone 5 mg tablet 40 mg PO QDAY 5 Days Qty: 40 0RF Continued propranolol 10 mg tablet 10 mg PO DAILY quetiapine 25 mg tablet 25 mg PO HS lamotrigine 100 mg tablet 100 mg PO .every morning gabapentin 300 mg capsule 600 mg PO HS hydroxyzine HCl 10 mg tablet 10 mg PO DAILY PRN (Reason: anxiety) Rx Instructions: take one tab by mouth one to two times daily as needed for anxiety atomoxetine 25 mg capsule 25 mg PO DAILY Rx Instructions: 1 cap po every morning Trintellix 20 mg tablet 20 mg PO DAILY Rx Instructions: every morning Prempro 0.625-5 mg tablet 1 tab PO DAILY Rx Instructions: every morning fluticasone propionate 110 mcg/actuation HFA aerosol inhaler 1 inh inhalation PRN PRN (Reason: sob) Rx Instructions: 1-2 puff as needed for sob Discontinued duloxetine [Cymbalta] 30 MG capsule,delayed release(DR/EC) 30 mg PO QDAY Qty: 0 Referrals: Kolby Garber MD [Primary Care Provider] - Patient/Caregiver Discharge Instructions Education Materials: ED Pneumonia (Adult) Print Language: Taiwanese Stand Alone Forms: Lucia Award Info., Patient Portal Info Letter Discharge Order Discharge Orders: Discharge (Routine); Ordered 06/19/25 Ordered By: Fidel Link Quality Discharge Quality Measures VTE prophylaxis Attestestation Attestation I Yesenia Link MD reviewed the note and agree with the resident's assessment & plan with modifications/additions/exceptions as below. I have personally reviewed labs, imaging, home meds/prior records, examined the patient, formulated and discussed management plan with the IM team. Specialists A 49-year-old female with history of Sjogren syndrome, lupus, seizure disorder, pulmonary fibrosis, HTN, bipolar disorder presented to ED with shortness of breath along with nausea, vomiting and cough at home with hypoxia with [id number] at home. Patient has been on antibiotics for pneumonia in outpatient setting for the past week however noted to have high-grade fever 2 days ago. Patient likely has failed outpatient CAP treatment and is admitted for acute hypoxemic respiratory failure secondary to CAP failed outpatient management. Respiratory status improved significantly overnight, currently no more oxygen requirement even on ambulation. Will change antibiotic to Augmentin and azithromycin to complete total 7 days . Will also start a short course of prednisone 40 mg da beth for 5 days. Resume Plaquenil home dose 200 mg twice daily, follow-up with pulmonology on discharge.
[2025-06-21 10:45] LABS: Cocci Serology, IgG Negative (Negative)
[2025-06-27 06:58] LABS: Lamotrigine* 2.4 mcg/mL (2.5-15.0)
== END 2025-06-19 13:57 | disposition home or self-care (01) | DRG 193 ==
LOC: SERX 22:28 → SERHOLD 23:31 → S3NX 06-18 01:38
PROVIDERS: Admitting Provider Internal Medicine; Emergency Provider Emergency Medicine; PCP Family Medicine; Visit Provider Internal Medicine
DX: J18.9 Pneumonia, unspecified organism (principal); J96.01 Acute respiratory failure with hypoxia; F31.81 Bipolar II disorder; J84.10 Pulmonary fibrosis, unspecified; M79.7 Fibromyalgia; I10 Essential (primary) hypertension; F41.9 Anxiety disorder, unspecified; M35.00 Sjogren syndrome, unspecified; G40.909 Epilepsy, unspecified, not intractable, without status epilepticus; M32.9 Systemic lupus erythematosus, unspecified; Z79.899 Other long term (current) drug therapy; Z87.01 Personal history of pneumonia (recurrent)
CPT/HCPCS: 36415; 36600; 71045; 80053; 80175; 82803; 83605; 83735; 84100; 84145; 85025; 86331; 86635; 87040; 87081; 87205; 87400; 87502; 87811; 89220; 93005; 96365; 96372; 99284; J0692; J0696; J1644; J3373; J3375; J3475; J3490; J7050; 94640; A9270